=== PATIENT | male | born 1985 | race African-American/Black ===

== ENCOUNTER 2017-02-21 10:35 | Emergency (ER) | payer OTHER ==
[2017-02-21 10:47] VITALS: BP 130/63; PULSE 97; TEMP 98.5; BMI 30.7
[2017-02-21] MEDS ORDERED: RANITIDINE HCL 150 MG TABLET (FP) PO ONE (11:23)
--- NOTE | 2017-02-21 11:33 | PDOC ---
History of Present Illness - General Chief Complaint: Sore Throat Stated Complaint: THROAT PAIN/STOMACH PAIN Time Seen by Provider: 02/21/17 11:13 - History of Present Illness Initial Comments: 02/21/17 11:25 CHIEF COMPLAINT: throat, stomach pain HISTORY OF PRESENT ILLNESS: 32 yo M with no PMH presents to [facility] track with ear , throat, and "burning" stomach pain x 1 week. Patient states that the pain is worse "when he is talking on the phone." Patient denies fever, chills, nausea, vomiting, diarrhea, or any URI symptoms. PAST MEDICAL HISTORY: Denies past medical history FAMILY HISTORY: Denies SOCIAL HISTORY: Denies tobacco, alcohol, illicit drug use. SURGICAL HISTORY: Denies ALLERGIES: No known drug allergies REVIEW OF SYSTEMS General/Constitutional: Denies fever or chills. Denies weakness, weight change. HEENT: "Back of throat hurts, and both ears hurt." Denies change in vision. Cardiovascular: Denies chest pain or shortness of breath. Respiratory: Denies cough, wheezing. Gastrointestinal: Denies nausea, vomiting, diarrhea. Denies rectal bleeding. Genitourinary: Denies dysuria, frequency, or change in urination. Musculoskeletal: Denies joint or muscle swelling or pain. Denies neck or back pain. Skin and breasts: Denies rash or easy bruising. PHYSICAL EXAM General Appearance: Well-appearing, appropriately dressed. No apparent distress. HEENT: Mildly erythematous ororpharynx. TMs intact b/l. EOMI, PERRLA. No conjunctival pallor. No photophobia, scleral icterus. Neck: Supple. Trachea midline. No tenderness, rigidity, carotid bruit, stridor , lymphadenopathy, or thyromegaly. Respiratory/Chest: Lungs CTAB. Cardiovascular: RRR. S1, S2. Gastrointestinal/Abdominal: Normal bowel sounds. Abdomen soft, non-distended. No tenderness or rebound tenderness. No organomegaly, pulsatile mass, guarding , hernia, hepatomegaly, splenomegaly. Musculoskeletal/Extremities: Normal inspection. FROM of all extremities, normal capillary refill. Pelvis Stable. No CVA tenderness. No tenderness to extremities, pedal edema, swelling, erythema or deformity. Integumentary: Appropriate color, dry, warm. No cyanosis, erythema, jaundice or rash Neurologic: web design specialist II-XII intact. Fully oriented, alert. Appropriate mood/affect. Motor strength 5/5. No appreciable EOM palsy, facial droop or sensory deficit. Past History - Past Medical History Allergies/Adverse Reactions: Allergies Allergy/AdvReac Type Severity Reaction Status Date / Time No Known Allergies Allergy Verified 02/21/17 10:44 Home Medications: Ambulatory Orders Pantoprazole Sodium [Protonix] 40 mg PO DAILY #20 tablet. 02/21/17 COPD: No Other medical history: DENIES. - Suicide/Smoking/Psychosocial Hx Smoking History: Never smoked *Physical Exam - Vital Signs Last Vital Signs Temp Pulse Resp BP Pulse Ox 98.5 F 97 H 18 130/63 97 02/21/17 10:44 02/21/17 10:44 02/21/17 10:44 02/21/17 10:44 02/21/17 10:44 Medical Decision Making - Medical Decision Making 02/21/17 11:33 32 yo M with no PMH presents to [facility] with ear, throat, and "burning" stomach/midsternal pain x 1 week. Clinical presentation suggestive of GERd. -strep swab -zantac Advised patient to take medication as prescribed and follow up with ENT if symptoms persist past 3-5 days. Advised patient of signs and symptoms for return to ED. Patient verbalized understanding and agrees to plan. *DC/Admit/Observation/Transfer Diagnosis at time of Disposition: Acute pain of both ears GERD (gastroesophageal reflux disease) Qualifiers: Esophagitis presence: esophagitis presence not specified Qualified Code(s): K21.9 - Gastro-esophageal reflux disease without esophagitis - Discharge Dispostion Disposition: HOME Condition at time of disposition: Stable Admit: No - Prescriptions Prescriptions: Pantoprazole Sodium [Protonix] 40 mg PO DAILY #20 tablet.dr - Referrals Referrals: Howard Braxton MD [Staff Physician] - - Patient Instructions Printed Discharge Instructions: DI for Gastroesophageal Reflux Disease (GERD), DI for Ear Pain-Adult Additional Instructions: Please take medications as prescribed. Follow up with ENT if symptoms persist past 3-5 days. If you develop any sudden loss of hearing, difficulty speaking, weakness, change in vision, fever, vomiting, diarrhea, or any new or worsening symptoms, please return to the ER. S'il vous plat prendre sima mdicaments tels que prescrits. Suivi avec ENT si les symptmes persistent aprs 3-5 jours. Si vous dveloppez une perte soudaine d'oue, une difficult parler, une faiblesse, un changement de vision, de la fivre, sima vomissements, de la diarrhe ou tout autre symptme nouveau ou ld s 'aggrave, veuillez retourner l'urgence. Print Language: TURKISH - Post Discharge Activity
[2017-02-21] MEDS ORDERED: RANITIDINE HCL 150 MG TABLET (FP) ONE (11:35)
== END 2017-02-21 12:21 | disposition home or self-care (01) ==
LOC: JERFT 10:35
DX: K21.9 Gastro-esophageal reflux disease without esophagitis (principal); H92.03 Otalgia, bilateral
CPT/HCPCS: 87070; 87430; 99281-25